=== PATIENT | male | born 1960 | race Caucasian/White ===

== ENCOUNTER 2021-04-30 13:25 | Emergency (ER) | payer OTHER ==
[~2021-04-30 13:25] MED LIST: BACTRIM DS TAB1 EACH PO
[2021-04-30 17:34] LABS: BASOPHIL 0.3 % (0-2); EOSINOPHIL 0.4 % (0-5); HCT 38.7 % (42.0-52.0); HGB 12.6 g/dl (13.2-18.0); LYMPHOCYTE 5.1 % (15-48); MCH 28.1 pg (25.0-31.0); MCHC 32.6 g/dL (32.0-36.0); MCV 86.4 fL (78.0-100.0); MONOCYTE 8.2 % (0-12); MPV 9.8 fL (6.0-9.5); NEUTROPHIL 85.6 % (41-80); NRBC 0; PLT 271 K/uL (150-400); RBC 4.48 M/uL (4.70-6.00); RDW 14.7 % (11.5-14.0); WBC 23.4 K/uL (4.0-10.5)
[2021-04-30 17:46] LABS: BUN/CREAT RATIO (CALC) 15.9 RATIO; CREATININE 1.57 mg/dL (0.67-1.17)
[2021-04-30] MEDS ORDERED: CLEOCIN300 MG PO (18:03)
== END 2021-04-30 19:02 | disposition home or self-care (01) ==
LOC: FER 13:25
PROVIDERS: Internal Medicine
DX: K11.20 Sialoadenitis, unspecified (principal); N18.30 Chronic kidney disease, stage 3 unspecified; F17.210 Nicotine dependence, cigarettes, uncomplicated; G82.50 Quadriplegia, unspecified
CPT/HCPCS: 36415; 70486; 70490; 80048; 85025; J0295; J1170; J2405